=== PATIENT | female | born 1990 | race Caucasian/White ===

== ENCOUNTER 2018-04-07 19:45 | Outpatient (CLI) | payer MEDICAID, SELFPAY ==
[2018-04-07 20:21] LABS: Mucous, Urine 0 SEEN /hpf (<or=2+); Red Blood Cells-Urine 0 SEEN /hpf (0-5)
[2018-04-07 20:26] LABS: Hematocrit 38.1 % (37-47); Hemoglobin 13.4 g/dl (12.0-15.0); Mean Corp Hgb Conc 35.2 g/gl (32-36); Mean Corpuscular Volume 88.2 fL (81-99); Mean Platelet Vol. 10.3 fl (6.2-12.0); Platelet Count 176 K/mm3 (150-450); RBC Distribution Width CV 13.3 % (11.6-14.6); RBC Distribution Width SD 41.5 fl (35.1-43.9); Red Blood Count 4.32 M/mm3 (4.2-5.4); White Blood Count 10.9 K/mm3 (4.4-11.0)
[2018-04-07 20:26] LABS: Color, Urine Yellow (Yellow); Glucose, Dipstick Normal (Normal); Ketone-Dipstick Negative (Negative); Leukocyte Esterase-Dipstick Negative /ul (Negative); Nitrite-Dipstick Negative (Negative); Occult Blood-Urine Negative /ul (Negative); Protein-Dipstick Negative (Negative); Urine Bilirubin Dipstick Negative (Negative); Urine Clarity Clear (Clear); Urine Urobilinogen Normal (Normal)
[2018-04-07 20:31] LABS: Scan Indicated on CBC? Y/N NO
[2018-04-07 20:33] VITALS: BMI 28.4
[2018-04-07 20:33] LABS: Bacteria 2+ /hpf (None Seen); Squamous Epithelial Cells - UA 5-10 SEEN /hpf (5-10); White Blood Cells 0-5 SEEN /hpf (0-5)
[2018-04-07 20:35] LABS: Protein, Urine (Random) < 6.0 mg/dL (<11.9); Protein:Creat Ratio 96 mg/g CRE (0-200)
[2018-04-07 20:50] LABS: AST(SGOT) 17 U/L (15-37); Alanine Aminotransfer ALT/SGPT 18 U/L (13-56); Creatinine, Serum 0.48 mg/dL (0.55-1.02); EST Glomerular Filtration Rate 162 mL/min (>60); Est Glom Filt Rate - Afr Amer 196 mL/min (>60); Estimated Creatinine Clearance 149.33 ml/min; Uric Acid 3.4 mg/dL (2.6-6.0)
--- NOTE | 2018-04-07 21:03 | OB.TRI.NOTE ---
- Problem List (1) Nausea Status: Acute (2) Blurred vision Status: Acute (3) Fatigue Status: Acute History of Present Illness Date of Service: 04/07/18 Was patient seen by the physician?: Yes Reason For Visit: Rule out pre-eclampsia Date of Service: 04/07/18 Final YOKO: 05/25/18 Gestational age: 33 Weeks and 1 Days History of Present Illness: Patient is a at 33 weeks gestation who presents with fatigue, less urination, constipation, blurred vision when looking at light, and nausea. She has been checking her BP at home and reports at night BP 130/80, then lower in the morning. She denies a headache. She states about 2 days ago she had a headache that was consistent with her migraines. This ROSE then resolved. 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 She denies any emesis with her nausea. She has been tolerating PO well. She denies any spots or lights in her vision, and describes her blurred vision as things appearing blurry when she looks into the bright light. She feels she has been fatigued over the last several days and sleeping more. She also feels like she has been staying hydrated but not urinating as much as usual overnight. She has been taking colace and miralax and still feels constipated. +Irregular ctx's over past few days. No Vb, LOF. Good FM. No epigastric pain, RUQ pain. Allergies kiwi Allergy (Verified 04/07/18 20:33) Hives peanut Allergy (Verified 04/07/18 20:33) Hives - Pertinent Past Medical History Medical History: Past Medical History (Last Updated 04/07/18 @ 21:13 by Christina Simental DO) Anxiety History of hemorrhage Migraines POTS (postural orthostatic tachycardia syndrome) Polyhydramnios Pyelectasis of fetus on ultrasound Rh negative state in antepartum period [place] teeth removed Pertinent Past Medical History: G1: Term , per patient's report gHTN with possible pre-e? was not on mag gtt G2: Term , no gHTN or pre-e, hemorrhage Laboratory Studies: Laboratory Tests 04/07/18 04/07/18 04/07/18 Range/Units 20:08 20:08 20:08 WBC 10.9 (4.4-11.0) K/mm3 RBC 4.32 (4.2-5.4) M/mm3 Hgb 13.4 (12.0-15.0) g/dl Hct 38.1 (37-47) % MCV 88.2 (81-99) fL MCH 31.0 (27.0-32.0) pg MCHC 35.2 (32-36) g/gl RDW 13.3 (11.6-14.6) % RDW Differential 41.5 (35.1-43.9) fl Plt Count 176 (150-450) K/mm3 MPV 10.3 (6.2-12.0) fl PT Cancelled INR Cancelled APTT Cancelled Creatinine 0.48 L (0.55-1.02) mg/dL Estim Creat Clear Calc 149.33 ml/min Est GFR (MDRD) Af Amer 196 (>60) mL/min Est GFR (MDRD) Non-Af 162 (>60) mL/min Uric Acid 3.4 (2.6-6.0) mg/dL AST 17 (15-37) U/L ALT 18 (13-56) U/L Urine Color (Yellow) Urine Clarity (Clear) Urine pH (5.0 - 8.0) Ur Specific [place] (1.002-1.030) Urine Protein (Negative) mg/dl Urine Glucose (UA) (Normal) mg/dl Urine Ketones (Negative) mg/dl Urine Occult Blood (Negative) /ul Urine Nitrite (Negative) Urine Bilirubin (Negative) mg/dL Urine Urobilinogen (Normal) mg/dl Ur Leukocyte Esterase (Negative) /ul Urine RBC (0-5) /hpf Urine WBC (0-5) /hpf Ur Squamous Epith Cells (5-10) /hpf Urine Bacteria (None Seen) /hpf Urine Mucus (<or=2+) /hpf U Random Total Protein (<11.9) mg/dL Urine Creatinine (NO RANGE EST.) mg/dL Protein/Creatinin Ratio (0-200) mg/g CRE 04/07/18 04/07/18 Range/Units 19:51 19:51 WBC (4.4-11.0) K/mm3 RBC (4.2-5.4) M/mm3 Hgb (12.0-15.0) g/dl Hct (37-47) % MCV (81-99) fL MCH (27.0-32.0) pg MCHC (32-36) g/gl RDW (11.6-14.6) % RDW Differential (35.1-43.9) fl Plt Count (150-450) K/mm3 MPV (6.2-12.0) fl PT INR APTT Creatinine (0.55-1.02) mg/dL Estim Creat Clear Calc ml/min Est GFR (MDRD) Af Amer (>60) mL/min Est GFR (MDRD) Non-Af (>60) mL/min Uric Acid (2.6-6.0) mg/dL AST (15-37) U/L ALT (13-56) U/L Urine Color Yellow (Yellow) Urine Clarity Clear (Clear) Urine pH 7.0 (5.0 - 8.0) Ur Specific [place] 1.010 (1.002-1.030) Urine Protein Negative (Negative) mg/dl Urine Glucose (UA) Normal (Normal) mg/dl Urine Ketones Negative (Negative) mg/dl Urine Occult Blood Negative (Negative) /ul Urine Nitrite Negative (Negative) Urine Bilirubin Negative (Negative) mg/dL Urine Urobilinogen Normal (Normal) mg/dl Ur Leukocyte Esterase Negative (Negative) /ul Urine RBC 0 SEEN (0-5) /hpf Urine WBC 0-5 SEEN (0-5) /hpf Ur Squamous Epith Cells 5-10 SEEN (5-10) /hpf Urine Bacteria 2+ (None Seen) /hpf Urine Mucus 0 SEEN (<or=2+) /hpf U Random Total Protein < 6.0 (<11.9) mg/dL Urine Creatinine 52.90 (NO RANGE EST.) mg/dL Protein/Creatinin Ratio 96 (0-200) mg/g CRE Review of Systems Constitutional: Denies: Fever Eyes: Reports: Blurred vision HEENT: Denies: Head Aches Cardiovascular: Denies: Chest Pain, Edema Respiratory: Denies: Shortness of Breath Gastrointestinal: Reports: Constipation, Nausea. Denies: Abdominal Pain, Vomiting Genitourinary: Denies: Dysuria, Frequency, Hematuria, Urgency Gynecological: Denies: Vaginal bleeding Physical Exam General: Alert, Oriented x3, No apparent distress HEENT: Atraumatic Lungs: - - No increased resp effort Abdomen: Soft, Non Tender, Gravid, - - No RUQ pain or epigastric pain Extremities:: No edema Neurological: Deep Tendon Reflexes 2+/4 and Symmetrical, Neuro grossly intact, - - No hyperreflexia NST - FHR Rate Baby A Baseline: 135 Variability:: Moderate Accelerations:: 15 x 15 Decelerations:: None NST Reactive:: Yes FHR Category:: Category I Uterine Activity:: Irritability with occasional ctx's Impression/Plan 27 y/o at 33 wks who presents for rule out pre-eclampsia. Pt reports fatigue, nausea, urinating less than normal for her, constipation, blurred vision when looking at light. - Cycling BP's q 15 min: 1 mild range diastolic of 92, otherwise normal BP's - Pre-eclampsia labs, p/c ratio ordered - If BP's remain normal and labs return WNL, ok for d/c home - To call her OB provider tomorrow morning for follow up
[2018-04-07 21:41] LABS: International Normalized Ratio 0.9; Prothrombin Time (Protime)PT. 11.9 SECONDS (11.7-14.9)
[2018-04-07 21:56] LABS: Partial Thromboplast Time 25.2 Seconds (24.1-36.2)
== END 2018-04-07 21:45 | disposition home or self-care (01) ==
LOC: WPOUT 20:02 → WP 21:11
PROVIDERS: Visit Provider Obstetrics & Gynecology
DX: O26.893 Other specified pregnancy related conditions, third trimester (principal); H53.8 Other visual disturbances; O26.813 Pregnancy related exhaustion and fatigue, third trimester; Z3A.33 33 weeks gestation of pregnancy
CPT/HCPCS: 36415; 59025; 59050; 81001; 82565; 82570; 84156; 84450; 84460; 84550; 85027; 85610; 85730; 99218; G0378